=== PATIENT | male | born 1995 | race Caucasian/White ===

== ENCOUNTER 2016-12-09 03:38 | Emergency (ER) | payer MEDICARE | END 2016-12-09 05:30 | disposition home or self-care (01) | LOC: ER 03:38 | DX: T40.1X1A Poisoning by heroin, accidental (unintentional), initial encounter (principal); F17.220 Nicotine dependence, chewing tobacco, uncomplicated | CPT/HCPCS: 96361; 96374 ==

== ENCOUNTER 2017-01-31 19:38 | Emergency (ER) | payer MEDICARE | END 2017-01-31 22:15 | disposition home or self-care (01) | LOC: ER 19:38 | DX: L03.114 Cellulitis of left upper limb (principal); F17.228 Nicotine dependence, chewing tobacco, with other nicotine-induced disorders ==